=== PATIENT | female | born 1930 | race Caucasian/White ===

== ENCOUNTER 2017-08-17 15:37 | Emergency (ER) | payer MEDICARE, BC ==
[2017-08-17] MEDS ORDERED: Ondansetron 4 MG/2 ML SDV IVPUSH ONE (16:16)
[2017-08-17] MEDS ORDERED: HYDROmorphone 1 MG/ML Syringe IVPUSH ONE ×2 (16:16→20:07)
[2017-08-17] MEDS ORDERED: Sodium Chloride 0.9% 1,000 ML IV SCH (16:30)
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
[2017-08-17] MEDS ORDERED: Diatrizoate Meglumine/Diatrizoate Sodium 37% 120 ML Bottle PO ONE (17:18)
[2017-08-17] MEDS: Sodium Chloride 0.9% 10 ML Syringe FLUSH PRN ×2 (17:22→18:26)
[2017-08-17] MEDS ORDERED: Iopamidol 755 Mg/ML 100 ML Bottle IVPUSH ONE (17:59)
[2017-08-17] MEDS ORDERED: Sodium Chloride 0.9% 10 ML Syringe FLUSH PRN (17:59)
[2017-08-17] MEDS ORDERED: Sodium Chloride 0.9% 100 ML IV SCH (18:00)
[2017-08-17] MEDS ORDERED: Levofloxacin/Dextrose 5%-Water 750 MG in Premix Bag 1 BAG IV ONE (18:45)
[2017-08-17] MEDS ORDERED: metroNIDAZOLE/Normal Saline 500 MG in Premix Bag 1 BAG IV ONE (18:45)
[2017-08-17] MEDS ORDERED: cefOXitin 2 GM in Premix Bag 1 BAG IV ONE (19:58)
[2017-08-17] MEDS ORDERED: LORazepam 2 MG/ML MDV IVPUSH ONE (20:07)
[2017-08-17] MEDS ORDERED: HYDROmorphone 0.5 MG/0.5 ML Syringe IVPUSH ONE (22:05)
[2017-08-17] MEDS ORDERED: HYDROmorphone 0.5 MG/0.5 ML Syringe ONE (22:09)
--- NOTE | 2017-08-18 10:06 | CT ---
CT abdomen and pelvis Technique: Multiple axial sections were obtained from above the dome of the diaphragm inferiorly through the pubic symphysis. Intravenous and oral contrast has been given. Delayed images were also obtained through the abdomen and pelvis. Comparison: Abdominal x-ray performed earlier on the same day. Findings: Slight increased density within both lung bases felt to represent a combination of atelectasis and scarring. Gallbladder is markedly enlarged. Cysts are identified within the liver. Largest cyst measures approximately 2.4 cm. Mass identified off the spleen measuring about 3 cm. Incidental calcified granuloma is seen within the spleen. The splenic mass is most likely benign. Free air is identified within the abdomen. Moderately large hiatal hernia is seen. Adrenal glands show no nodule. Kidneys show symmetric contrast enhancement without hydronephrosis or mass. Aorta shows diffuse atherosclerotic change which continues into the iliac vessels. No aneurysm is seen. Pancreas is within normal limits. No retroperitoneal adenopathy is seen. 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 Appendix not definitely visualized. Inflammatory change is identified off the tip of the cecum. There are some adjacent small bowel loops being seen showing wall thickening. Right inguinal hernia is seen containing small bowel loops. This does not appear to cause any small bowel obstruction at this time. Prominent loops of jejunum and ileum are seen which may represent an ileus from the inflammatory process within the right lower abdomen or represent a mild partial small bowel obstruction due to the wall thickening seen within small bowel loops in the area of the inflammatory change. Degenerative change and scoliosis noted within the spine. Incidental diverticuli within the sigmoid colon and descending colon. Degenerative change incidentally noted within the left hip. Impression: 1. Inflammatory change off the tip of the cecum with adjacent small bowel wall thickening. Differential includes ruptured appendix from appendicitis versus perforated small bowel in this area. 2. Mild amount of free air is noted. 3. Markedly dilated gallbladder. 4. Right inguinal hernia containing nondilated small bowel. 5. Moderately large hiatal hernia and other incidental findings. 6. Mildly dilated small bowel loops most likely relating to the right lower abdominal inflammatory process. Diagnostic code #5 I agree with preliminary report issued by [facility] ([facility] report finalized on 08/17/17, 8:18 PM Central Time)
== END 2017-08-17 22:12 ==
LOC: JD.ED 15:37
DX: K63.1 Perforation of intestine (nontraumatic) (principal); Z90.49 Acquired absence of other specified parts of digestive tract; I10 Essential (primary) hypertension; E78.00 Pure hypercholesterolemia, unspecified; Z79.82 Long term (current) use of aspirin; Z79.899 Other long term (current) drug therapy
CPT/HCPCS: 36415; 74177; 74177-26; 80053; 81001; 85025; 86140; 96361; 96365; 96367; 96375; 96376; 99285-25; J0694; J1170; J1956; J2060; J2405; J7030; J7040; J7050; P9612; Q9963; Q9967

== ENCOUNTER 2021-09-28 13:32 | Inpatient (IN) | payer MEDICARE, BC ==
[2021-09-28] MEDS ORDERED: Ondansetron 4 MG/2 ML SDV IVPUSH ONE (14:20)
[2021-09-28] MEDS ORDERED: Sodium Chloride 0.9% 1,000 ML IV SCH (14:30)
[2021-09-28 14:46] LABS: CORONAVIRUS COVID-19 NAA NEGATIVE (NEGATIVE)
[2021-09-28] MEDS: Sodium Chloride 0.9% 10 ML Syringe FLUSH PRN ×2 (15:02→16:31)
[2021-09-28] MEDS ORDERED: Acetaminophen/HYDROcodone 325-5 MG Tab PO ONE (15:08)
[2021-09-28] MEDS ORDERED: Iopamidol 612 MG/ML 100 ML Bottle IVPUSH ONE (15:57)
[2021-09-28] MEDS ORDERED: Sodium Chloride 0.9% 10 ML Syringe FLUSH ONE (15:57)
[2021-09-28] MEDS ORDERED: Sodium Chloride 0.9% 100 ML IV SCH ×2 (16:00→18:45)
[2021-09-28] MEDS ORDERED: Iopamidol 755 Mg/ML 100 ML Bottle IVPUSH ONE (18:34)
[2021-09-28] MEDS ORDERED: Ibuprofen 400 MG Tab PO PRN (20:39)
[2021-09-28] MEDS ORDERED: Ondansetron 4 MG Tab.DIS PO PRN (20:39)
[2021-09-28] MEDS ORDERED: Acetaminophen 325 MG Tab PO PRN (20:39)
[2021-09-28] MEDS ORDERED: Zolpidem 5 MG Tab PO PRN (20:39)
[2021-09-28] MEDS ORDERED: cefTRIAXone 1 GM in Sodium Chloride 0.9% 100 ML IV SCH (20:45)
[2021-09-28] MEDS ORDERED: cefTRIAXone 1 GM in Sodium Chloride 0.9% 100 ML IV ONE (21:00)
[2021-09-28] MEDS: metroNIDAZOLE 500 MG Tab PO SCH (22:51)
[2021-09-28] MEDS: Vancomycin 250 MG Cap PO SCH (22:51)
[2021-09-29] MEDS: Vancomycin 250 MG Cap PO SCH ×5 (05:57→22:48)
[2021-09-29] MEDS: metroNIDAZOLE 500 MG Tab PO SCH (06:01)
[2021-09-29] MEDS ORDERED: Sodium Chloride 0.9% 1,000 ML IV ONE (06:02)
[2021-09-29] MEDS: Pantoprazole 40 MG Tab.CR PO SCH ×2 (06:49→15:09)
[2021-09-29] MEDS ORDERED: Enoxaparin 40 MG/0.4 ML Syringe SUBCUT SCH (09:00)
[2021-09-29] MEDS ORDERED: Diltiazem 240 MG Cap.ER PO SCH (09:00)
[2021-09-29] MEDS ORDERED: Venlafaxine 75 MG Cap.ER PO SCH (09:45)
[2021-09-29] MEDS: Acetaminophen/HYDROcodone 325-5 MG Tab PO PRN ×2 (15:09→19:59)
[2021-09-29] MEDS: Isosorbide Mononitrate 30 MG Tab.ER PO SCH (15:52)
[2021-09-29] MEDS: Potassium Chloride 20 MEQ Tab.ER PO SCH ×2 (15:52→19:59)
[2021-09-29] MEDS: Metoprolol Tartrate 25 MG Tab PO SCH (15:53)
[2021-09-29] MEDS: DESVENLAFAXINE SUCCINATE 50 MG PO SCH (15:55)
[2021-09-29] MEDS ORDERED: Pantoprazole 40 MG Tab.CR PO SCH (16:00)
[2021-09-29] MEDS: ALPRAZolam 0.5 MG Tab PO SCH (19:59)
[2021-09-29] MEDS: Aspirin 325 MG Tab.EC PO SCH (19:59)
[2021-09-29] MEDS ORDERED: DESVENLAFAXINE SUCCINATE PO SCH (21:00)
[2021-09-30] MEDS: Metoprolol Tartrate 25 MG Tab PO SCH ×2 (04:07→20:52)
[2021-09-30] MEDS: Vancomycin 250 MG Cap PO SCH ×4 (04:08→23:59)
[2021-09-30] MEDS: Pantoprazole 40 MG Tab.CR PO SCH ×2 (05:34→16:01)
[2021-09-30] MEDS: Acetaminophen/HYDROcodone 325-5 MG Tab PO PRN ×3 (05:59→20:51)
[2021-09-30] MEDS ORDERED: Metoprolol Tartrate 25 MG Tab PO ONE (09:00)
[2021-09-30] MEDS: Potassium Chloride 20 MEQ Tab.ER PO SCH ×2 (09:25→20:51)
[2021-09-30] MEDS: Isosorbide Mononitrate 30 MG Tab.ER PO SCH (09:27)
[2021-09-30] MEDS: DESVENLAFAXINE SUCCINATE 50 MG PO SCH (11:00)
[2021-09-30] MEDS: ALPRAZolam 0.5 MG Tab PO SCH (20:50)
[2021-09-30] MEDS: Aspirin 325 MG Tab.EC PO SCH (20:50)
[2021-10-01] MEDS: Pantoprazole 40 MG Tab.CR PO SCH (05:13)
[2021-10-01] MEDS: Vancomycin 250 MG Cap PO SCH ×2 (05:13→11:00)
[2021-10-01] MEDS: Potassium Chloride 20 MEQ Tab.ER PO SCH (09:50)
[2021-10-01] MEDS: Acetaminophen/HYDROcodone 325-5 MG Tab PO PRN (09:51)
[2021-10-01] MEDS: Metoprolol Tartrate 25 MG Tab PO SCH (09:54)
[2021-10-01] MEDS: DESVENLAFAXINE SUCCINATE 50 MG PO SCH (09:55)
[2021-10-01] MEDS: Isosorbide Mononitrate 30 MG Tab.ER PO SCH (09:56)
== END 2021-10-01 14:30 | disposition home or self-care (01) | DRG 373 ==
LOC: JD.ED 13:32 → JD.ICU 20:20 → OBSVTOIN 20:37
PROVIDERS: ADMIT Pediatrics; ATTEND Pediatrics
DX: A04.72 Enterocolitis due to Clostridium difficile, not specified as recurrent (principal); E86.0 Dehydration; R09.02 Hypoxemia; R53.1 Weakness; J02.9 Acute pharyngitis, unspecified; R19.7 Diarrhea, unspecified; W19.XXXA Unspecified fall, initial encounter; M19.90 Unspecified osteoarthritis, unspecified site; R11.2 Nausea with vomiting, unspecified; R13.10 Dysphagia, unspecified; Z87.891 Personal history of nicotine dependence; I25.10 Atherosclerotic heart disease of native coronary artery without angina pectoris; E78.00 Pure hypercholesterolemia, unspecified; Z98.42 Cataract extraction status, left eye; I10 Essential (primary) hypertension; Z98.891 History of uterine scar from previous surgery; Z93.3 Colostomy status; Z90.49 Acquired absence of other specified parts of digestive tract; E87.6 Hypokalemia; G89.29 Other chronic pain; M54.9 Dorsalgia, unspecified; F41.9 Anxiety disorder, unspecified; E04.1 Nontoxic single thyroid nodule; Z85.51 Personal history of malignant neoplasm of bladder; Z79.899 Other long term (current) drug therapy; Z20.822 Contact with and (suspected) exposure to COVID-19
CPT/HCPCS: 0241U; 36415; 51701; 71045; 71275; 74177; 80053; 81001; 83605; 83690; 83735; 84484; 85025; 85610; 85730; 86140; 87040; 87045; 87046; 87324; 87493; 87899; 93005; 96374; 97161; 97530; 99285; 93010; A9270-GY; J1650; J2405; J3490; J7030; Q9967

== ENCOUNTER 2022-01-24 17:31 | Emergency (ER) | payer MEDICARE, BC ==
[2022-01-24] MEDS ORDERED: Dexamethasone 10 MG/ML SDV IVPUSH ONE (18:11)
[2022-01-24] MEDS ORDERED: traMADol 50 MG Tab PO ONE (18:11)
[2022-01-24] MEDS ORDERED: Orphenadrine 100 MG Tab.ER PO ONE (18:14)
[2022-01-24] MEDS ORDERED: traMADol 50 MG Tab ONE (19:51)
[2022-01-24] MEDS ORDERED: Tamsulosin 0.4 MG Cap.ER PO ONE (20:26)
[2022-01-24] MEDS ORDERED: Acetaminophen/HYDROcodone 325-5 MG Tab PO ONE (20:39)
== END 2022-01-24 23:04 | disposition home or self-care (01) ==
LOC: JD.ED 17:31
DX: M25.552 Pain in left hip (principal); E78.00 Pure hypercholesterolemia, unspecified; I10 Essential (primary) hypertension; Z79.82 Long term (current) use of aspirin; Z79.899 Other long term (current) drug therapy
CPT/HCPCS: 73502; 81001; 96374; 99284; A9270; J1100